=== PATIENT | male | born 1940 | race Caucasian/White ===

== ENCOUNTER 2018-03-23 07:46 | Observation (INO) | payer MEDICARE ==
[2018-03-19 14:16] LABS: BASOPHILS % (AUTO) 1.2 % (0.0-5.0); EOSINOPHILS % (AUTO) 5.1 % (0.0-8.0); HEMATOCRIT 44.9 % (42-54); LYMPHOCYTES % (AUTO) 20.3 % (21.0-51.0); MEAN CORPUSCULAR HEMOGLOBIN 32.6 pg (27.0-33.0); MEAN CORPUSCULAR HGB CONC 34.3 g/dL (32.0-36.0); MEAN CORPUSCULAR VOLUME 95.2 fL (79-99); MONOCYTES % (AUTO) 5.7 % (3.0-13.0); NEUTROPHILS % (AUTO) 67.7 % (40.0-77.0); NUCLEATED RED BLOOD CELLS 0.1 % (0.0-0.19); PLATELET COUNT (AUTO) 313 K/uL (130-400); RED BLOOD CELL COUNT(AUTO) 4.72 MIL/uL (4.50-6.20); RED CELL DISTRIBUTION WIDTH 13.3 % (11.0-15.5); WHITE BLOOD COUNT (AUTO) 12.3 K/uL (4.8-10.8)
[2018-03-19 14:18] LABS: APPEARANCE,URINE Clear (CLEAR); BILIRUBIN,URINE Negative (NEGATIVE); COLOR,URINE Yellow (YELLOW); GLUCOSE, URINE (UA) Negative (NEGATIVE); KETONES,URINE Negative (NEGATIVE); LEUKOCYTE ESTERASE ,URINE Negative (NEGATIVE); NITRATE,URINE Negative (NEGATIVE); OCCULT BLOOD,URINE Negative (NEGATIVE); PROTEIN,URINE Negative (NEGATIVE); UROBILINOGEN,URINE 0.2 mg/dL (0.2-1.0)
[2018-03-19 14:24] LABS: CREATININE 0.9 mg/dL (0.5-1.5); POTASSIUM 4.6 mmol/L (3.5-5.1)
[2018-03-19 14:26] VITALS: BP 145/55
[2018-03-19 14:28] LABS: PARTIAL THROMBOPLASTIN TIME 27.8 SEC (26.3-35.5)
[2018-03-19 14:44] LABS: INR 0.97 (0.85-1.15); PROTHROMBIN TIME 10.2 SEC (9.6-11.6)
[2018-03-23] VITALS (12 sets, daily range): BP systolic 131–158; BP diastolic 51–67
[~2018-03-23] VITALS: Ht 175.3 cm; Wt 84.5 kg
[~2018-03-23 07:46] MED LIST: AMLO5TAB2 PO; ASPI-1181 PO; CLOP75TA14 PO; LISI10TA7 PO; MAGN400T40 PO; METF500T6 PO; MULT-209 PO; MVIT PO; NITR0.4T50 SL; SERT50TA PO
[2018-03-23] MEDS ORDERED: SODIUM BICARB 50MEQ 50ML VIAL ONE (08:54)
[2018-03-23] MEDS ORDERED: ISOVUE-370 50ML VIAL IV ONE (08:55)
[2018-03-23] MEDS ORDERED: LIDOCAINE HCL-MPF 2% 5ML VIAL ONE (08:55)
[2018-03-23] MEDS ORDERED: NITROGLYCERIN 5 MG/ML 10 ML VIAL IV ONE (08:55)
[2018-03-23] MEDS ORDERED: IOPAMIDOL-370 100 ML VIAL IV ONE (08:55)
[2018-03-23] MEDS ORDERED: HEPARIN SODIUM 1000UNIT/ML 10ML VIAL ONE (08:55)
[2018-03-23] MEDS ORDERED: SODIUM CHLORIDE 0.9% 1000ML 1,000 ML IV ONE (09:09)
[2018-03-23] MEDS ORDERED: IOPAMIDOL-370 75 ML VIAL IV ONE (10:09)
[2018-03-23] MEDS ORDERED: ASPIRIN 81MG TAB.CHEW ONE (10:43)
[2018-03-23] MEDS ORDERED: CLOPIDOGREL BISULFATE 75 MG TAB ONE (10:43)
[2018-03-23] MEDS: SODIUM CHLORIDE 0.9% 1000ML 1,000 ML IV SCH ×2 (10:49→21:35)
[2018-03-23] MEDS ORDERED: ROSU10TA PO (10:56)
[2018-03-23] MEDS ORDERED: ONDANSETRON HCL 4 MG/2 ML VIAL IVP SCH (11:00)
[2018-03-23] MEDS ORDERED: ONDANSETRON HCL MDV 20ML 2 MG/ML VIAL IVP PRN (11:00)
[2018-03-23] MEDS ORDERED: ONDANSETRON HCL 4 MG/2 ML VIAL IVP PRN (11:00)
[2018-03-23] MEDS ORDERED: MORPHINE SULFATE 5 MG/ML VIAL IVP SCH (11:00)
[2018-03-23] MEDS ORDERED: ACETAMINOPHEN-CODEINE 300/30MG TAB PO PRN (11:00)
[2018-03-23] MEDS ORDERED: GLUCAGON 1MG KIT 1 MG ML IM PRN (11:00)
[2018-03-23] MEDS ORDERED: NITROGLYCERIN 0.4 MG SL TAB SL PRN (11:00)
[2018-03-23] MEDS ORDERED: DEXTROSE 50%-WATER 50 ML DISP.SYRIN IV PRN (11:00)
[2018-03-23] MEDS: INSULIN HUMULIN R 100 UNIT/ML 3ML SQ SCH ×3 (11:30→21:00)
[2018-03-23 13:03] LABS: INR 0.98 (0.85-1.15); PARTIAL THROMBOPLASTIN TIME 43.6 SEC (26.3-35.5); PROTHROMBIN TIME 10.3 SEC (9.6-11.6)
[2018-03-23] MEDS ORDERED: ATROPINE SULFATE 0.1 MG/ML 10 ML SYG IVP ONE (14:15)
[2018-03-23] MEDS ORDERED: LISINOPRIL 10 MG TABLET PO SCH (21:00)
[2018-03-23] MEDS ORDERED: ATORVASTATIN CALCIUM 20 MG TABLET PO SCH (21:00)
[2018-03-23] MEDS ORDERED: SERTRALINE HCL 50 MG TABLET PO SCH (21:00)
[2018-03-23] MEDS ORDERED: AMLODIPINE BESYLATE 5 MG TAB PO SCH (21:00)
[2018-03-23] MEDS: MAGNESIUM OXIDE 400 MG TABLET PO SCH (21:12)
[2018-03-24 03:51] VITALS: BP 130/54
[2018-03-24 05:12] LABS: HEMATOCRIT 40.7 % (42-54); MEAN CORPUSCULAR HEMOGLOBIN 32.8 pg (27.0-33.0); MEAN CORPUSCULAR HGB CONC 34.7 g/dL (32.0-36.0); MEAN CORPUSCULAR VOLUME 94.5 fL (79-99); PLATELET COUNT (AUTO) 275 K/uL (130-400); RED BLOOD CELL COUNT(AUTO) 4.31 MIL/uL (4.50-6.20); RED CELL DISTRIBUTION WIDTH 13.5 % (11.0-15.5); WHITE BLOOD COUNT (AUTO) 11.6 K/uL (4.8-10.8)
[2018-03-24 05:25] LABS: CREATININE 0.8 mg/dL (0.5-1.5); POTASSIUM 4.2 mmol/L (3.5-5.1)
[2018-03-24] MEDS: INSULIN HUMULIN R 100 UNIT/ML 3ML SQ SCH ×2 (05:49→11:30)
[2018-03-24 07:44] VITALS: BP 127/64
[2018-03-24] MEDS ORDERED: CLOPIDOGREL BISULFATE 75 MG TAB PO SCH (09:00)
[2018-03-24] MEDS ORDERED: ASPIRIN 81 MG EC TAB PO SCH (09:00)
[2018-03-24] MEDS ORDERED: MULTIVITAMIN TABLET PO SCH (09:00)
[2018-03-24] MEDS: MAGNESIUM OXIDE 400 MG TABLET PO SCH (10:10)
== END 2018-03-24 12:35 | disposition home or self-care (01) ==
LOC: DAH 07:46 → 2AH 07:47 → DAH 07:47
PROVIDERS: ADMIT Internal Medicine; ATTEND Internal Medicine
DX: I25.119 Atherosclerotic heart disease of native coronary artery with unspecified angina pectoris (principal); M54.17 Radiculopathy, lumbosacral region; F17.210 Nicotine dependence, cigarettes, uncomplicated; J44.9 Chronic obstructive pulmonary disease, unspecified; E11.51 Type 2 diabetes mellitus with diabetic peripheral angiopathy without gangrene; I10 Essential (primary) hypertension; E78.5 Hyperlipidemia, unspecified; Z79.01 Long term (current) use of anticoagulants; Z79.82 Long term (current) use of aspirin; Z95.5 Presence of coronary angioplasty implant and graft
CPT/HCPCS: 36415 ×3; 71045; 80048 ×2; 80061; 81003; 82948 ×5; 85025; 85027; 85347 ×2; 85610 ×2; 85730 ×2; 93005 ×3; 93458; A4606; C1725; C1769 ×3; C1874; C1887 ×2; C1894 ×3; C9600; G0378 ×29; J0461; J1644; J3490 ×3; J7030 ×2; Q9967 ×3

== ENCOUNTER 2018-09-03 09:53 | Observation (INO) | payer MEDICARE ==
[2018-09-02 12:06] VITALS: BP 111/53
[2018-09-02 12:20] LABS: BASOPHILS % (AUTO) 0.8 % (0.0-5.0); HEMATOCRIT 44.3 % (42-54); MEAN CORPUSCULAR HEMOGLOBIN 31.8 pg (27.0-33.0); MEAN CORPUSCULAR HGB CONC 33.5 g/dL (32.0-36.0); NEUTROPHILS % (AUTO) 70.2 % (40.0-77.0); PLATELET COUNT (AUTO) 224 K/uL (130-400); RED BLOOD CELL COUNT(AUTO) 4.67 MIL/uL (4.50-6.20); RED CELL DISTRIBUTION WIDTH 13.5 % (11.0-15.5); WHITE BLOOD COUNT (AUTO) 12.2 K/uL (4.8-10.8)
[2018-09-02 12:33] LABS: INR 0.98 (0.85-1.15); PROTHROMBIN TIME 10.3 SEC (9.6-11.6)
[2018-09-02 12:36] LABS: CREATININE 1.1 mg/dL (0.5-1.5); POTASSIUM 4.8 mmol/L (3.5-5.1)
[~2018-09-03] VITALS: Ht 175.3 cm; Wt 90.7 kg
[2018-09-03] VITALS (9 sets, daily range): BP systolic 105–147; BP diastolic 46–71
[~2018-09-03 09:53] MED LIST changes: -AMLO5TAB2 PO; +AMLO5TAB7 PO; +METF-444 PO; -METF500T6 PO; +ROSU10TA PO
[2018-09-03] MEDS ORDERED: SODIUM CHLORIDE 0.9% 1000ML 1,000 ML IV ONE (11:17)
[2018-09-03 11:32] LABS: EOSINOPHILS % (AUTO) 5.1 % (0.0-8.0); HEMATOCRIT 43.6 % (42-54); LYMPHOCYTES % (AUTO) 20.3 % (21.0-51.0); MEAN CORPUSCULAR HEMOGLOBIN 32.5 pg (27.0-33.0); MEAN CORPUSCULAR HGB CONC 34.5 g/dL (32.0-36.0); MEAN CORPUSCULAR VOLUME 94.2 fL (79-99); MONOCYTES % (AUTO) 5.8 % (3.0-13.0); NEUTROPHILS % (AUTO) 67.8 % (40.0-77.0); PLATELET COUNT (AUTO) 233 K/uL (130-400); RED BLOOD CELL COUNT(AUTO) 4.63 MIL/uL (4.50-6.20); RED CELL DISTRIBUTION WIDTH 13.2 % (11.0-15.5); WHITE BLOOD COUNT (AUTO) 10.1 K/uL (4.8-10.8)
[2018-09-03] MEDS ORDERED: UMEC1DIS IH (11:59)
[2018-09-03] MEDS ORDERED: BUDE0.5A3 IH (11:59)
[2018-09-03] MEDS ORDERED: AZIT500T4 PO (12:02)
[2018-09-03] MEDS ORDERED: [UNRECOGNIZED DRUG - OTHER] IH (12:02)
[2018-09-03] MEDS ORDERED: METF500T PO (12:07)
[2018-09-03] MEDS ORDERED: MOTILIUM PO (12:09)
[2018-09-03] MEDS ORDERED: MIDAZOLAM HCL 1 MG/ML 2ML VIAL ONE ×2 (13:26→14:20)
[2018-09-03] MEDS ORDERED: BUPIVACAINE/PF 0.25% 50ML VIAL IJ ONE (13:26)
[2018-09-03] MEDS ORDERED: IOHEXOL-350 50ML VIAL IV ONE (13:26)
[2018-09-03] MEDS ORDERED: LIDOCAINE HCL 1% MDV 50ML VIAL ONE (13:27)
[2018-09-03] MEDS ORDERED: MEPERIDINE-PF 25 MG/ML SYG ONE ×2 (13:27→14:20)
[2018-09-03] MEDS ORDERED: CEFAZOLIN SODIUM 1 GM VIAL ONE (13:28)
[2018-09-03] MEDS ORDERED: OCTYL 2-CYANOACRYLATE 1 EACH TP ONE (14:53)
[2018-09-03] MEDS ORDERED: ACETAMINOPHEN 325 MG TAB PO PRN ×2 (15:15)
[2018-09-03] MEDS ORDERED: ACETAMINOPHEN-CODEINE 300/30MG TAB PO PRN ×2 (15:15)
[2018-09-03] MEDS ORDERED: TEMAZEPAM 30 MG CAP PO PRN (15:15)
[2018-09-03] MEDS ORDERED: ONDANSETRON HCL 4 MG/2 ML VIAL IV PRN (15:15)
[2018-09-03] MEDS: INSULIN HUMULIN R 100 UNIT/ML 3ML SQ SCH ×2 (16:30→22:01)
[2018-09-03] MEDS ORDERED: NITROGLYCERIN 0.4 MG SL TAB SL PRN (20:30)
[2018-09-03] MEDS ORDERED: CLOPIDOGREL BISULFATE 75 MG TAB PO SCH (21:00)
[2018-09-03] MEDS ORDERED: AZITHROMYCIN 250 MG TABLET PO SCH (21:00)
[2018-09-03] MEDS ORDERED: **HM**Umeclidinium Brm/Vilanterol Tr (Anoro Ellipta 62.5-25 Mcg IH SCH (21:00)
[2018-09-03] MEDS ORDERED: LISINOPRIL 10 MG TABLET PO SCH (21:00)
[2018-09-03] MEDS ORDERED: ASPIRIN 81 MG EC TAB PO SCH (21:00)
[2018-09-03] MEDS ORDERED: AMLODIPINE BESYLATE 5 MG TAB PO SCH (21:00)
[2018-09-03] MEDS ORDERED: ATORVASTATIN CALCIUM 20 MG TABLET PO SCH (21:00)
[2018-09-03] MEDS ORDERED: SERTRALINE HCL 50 MG TABLET PO SCH (21:00)
[2018-09-03] MEDS: METFORMIN HCL 500 MG TABLET PO SCH (21:37)
[2018-09-03] MEDS: CEFAZOLIN SODIUM 1 GM VIAL IVP SCH (22:04)
[2018-09-03] MEDS: MAGNESIUM OXIDE 400 MG TABLET PO SCH (22:05)
[2018-09-04 03:42] VITALS: BP 121/68
[2018-09-04 04:07] LABS: HEMATOCRIT 39.5 % (42-54); MEAN CORPUSCULAR HEMOGLOBIN 32.5 pg (27.0-33.0); MEAN CORPUSCULAR HGB CONC 34.5 g/dL (32.0-36.0); MEAN CORPUSCULAR VOLUME 94.2 fL (79-99); PLATELET COUNT (AUTO) 201 K/uL (130-400); RED BLOOD CELL COUNT(AUTO) 4.19 MIL/uL (4.50-6.20); RED CELL DISTRIBUTION WIDTH 13.4 % (11.0-15.5)
[2018-09-04 04:19] LABS: ALBUMIN 3.5 g/dL (3.5-5.0); BILIRUBIN,TOTAL 0.3 mg/dL (0.2-1.0); POTASSIUM 4.3 mmol/L (3.5-5.1); TOTAL PROTEIN, SERUM 6.5 g/dL (6.0-8.3)
[2018-09-04] MEDS: INSULIN HUMULIN R 100 UNIT/ML 3ML SQ SCH (05:47)
[2018-09-04] MEDS ORDERED: BUDESONIDE 0.5 MG/2 ML INH IH SCH (06:00)
[2018-09-04] MEDS: CEFAZOLIN SODIUM 1 GM VIAL IVP SCH (06:41)
[2018-09-04 07:23] VITALS: BP 134/71
[2018-09-04] MEDS ORDERED: MULTIVITAMIN W MINERALS PO SCH (09:00)
[2018-09-04] MEDS ORDERED: LUTEIN PO SCH (09:00)
[2018-09-04] MEDS ORDERED: MULTIVITAMIN TABLET PO SCH (09:00)
[2018-09-04] MEDS: METFORMIN HCL 500 MG TABLET PO SCH (10:06)
[2018-09-04] MEDS: MAGNESIUM OXIDE 400 MG TABLET PO SCH (10:06)
[2018-09-04 11:37] VITALS: BP 99/58
== END 2018-09-04 16:30 | disposition home or self-care (01) ==
LOC: DAH 09:53 → DAHIP 09:54 → 2AH 16:04
PROVIDERS: ADMIT Internal Medicine Critical Care Medicine; ATTEND Internal Medicine Critical Care Medicine
DX: I49.5 Sick sinus syndrome (principal); I25.10 Atherosclerotic heart disease of native coronary artery without angina pectoris; I10 Essential (primary) hypertension; E11.9 Type 2 diabetes mellitus without complications; E78.5 Hyperlipidemia, unspecified; F15.90 Other stimulant use, unspecified, uncomplicated; I73.9 Peripheral vascular disease, unspecified; J44.9 Chronic obstructive pulmonary disease, unspecified; Z95.0 Presence of cardiac pacemaker; Z79.01 Long term (current) use of anticoagulants; Z79.2 Long term (current) use of antibiotics; Z79.82 Long term (current) use of aspirin; Z79.899 Other long term (current) drug therapy; Z79.84 Long term (current) use of oral hypoglycemic drugs; Z72.89 Other problems related to lifestyle; Z95.5 Presence of coronary angioplasty implant and graft; Z83.3 Family history of diabetes mellitus; Z82.49 Family history of ischemic heart disease and other diseases of the circulatory system
CPT/HCPCS: 33208; 36415 ×3; 71046 ×2; 80048; 80053; 82948 ×7; 85025 ×2; 85027; 85610; 85730; 93005; 94640; 94664; 96372; 96374; 96376; A4606; C1785; C1894; C1898 ×2; G0378 ×31; J0690 ×3; J1815; J2175 ×2; J2250 ×2; J3490 ×2; J7030; Q9967; 99156; 99157

== ENCOUNTER 2020-04-18 05:30 | Day surgery (SDC) | payer MEDICARE ==
[~2020-04-18] VITALS: Ht 175.3 cm; Wt 100.2 kg
[2020-04-18] VITALS (9 sets, daily range): BP systolic 112–170; BP diastolic 64–85
[~2020-04-18 05:30] MED LIST changes: -AMLO5TAB7 PO; +ENAL10TA PO; -LISI10TA7 PO; -MAGN400T40 PO; -METF-444 PO; +METF500T PO; +METO-391 PO; -MULT-209 PO; -MVIT PO; -NITR0.4T50 SL; -ROSU10TA PO
[2020-04-18 06:10] LABS: APPEARANCE,URINE Clear (CLEAR); BILIRUBIN,URINE Negative (NEGATIVE); COLOR,URINE Yellow (YELLOW); GLUCOSE, URINE (UA) Negative (NEGATIVE); KETONES,URINE Negative (NEGATIVE); LEUKOCYTE ESTERASE ,URINE Negative (NEGATIVE); NITRATE,URINE Negative (NEGATIVE); OCCULT BLOOD,URINE Negative (NEGATIVE); PH,URINE 6.5 (5.0-8.0); PROTEIN,URINE Negative (NEGATIVE); UROBILINOGEN,URINE 0.2 mg/dL (0.2-1.0)
[2020-04-18 06:10] LABS: EOSINOPHILS % (AUTO) 5.1 % (0.0-8.0); HEMATOCRIT 42.3 % (42-54); LYMPHOCYTES % (AUTO) 30.3 % (21.0-51.0); MEAN CORPUSCULAR HEMOGLOBIN 32.1 pg (27.0-33.0); MEAN CORPUSCULAR VOLUME 94.4 fL (79-99); MONOCYTES % (AUTO) 6.5 % (3.0-13.0); NEUTROPHILS % (AUTO) 56.6 % (40.0-77.0); PLATELET COUNT (AUTO) 257 K/uL (130-400); RED BLOOD CELL COUNT(AUTO) 4.48 MIL/uL (4.50-6.20); RED CELL DISTRIBUTION WIDTH 12.5 % (11.0-15.5); WHITE BLOOD COUNT (AUTO) 9.6 K/uL (4.8-10.8)
[2020-04-18 06:29] LABS: CREATININE 1.2 mg/dL (0.5-1.5); POTASSIUM 5.2 mmol/L (3.5-5.1)
[2020-04-18] MEDS ORDERED: METF-444 PO (06:38)
[2020-04-18] MEDS ORDERED: METO50TA18 PO (06:38)
[2020-04-18] MEDS ORDERED: METOPROLOL TARTRATE 50 MG TAB PO SCH (06:45)
[2020-04-18] MEDS ORDERED: SODIUM CHLORIDE 0.9% 1000ML 1,000 ML IV ONE (06:47)
[2020-04-18] MEDS ORDERED: IOHEXOL 350 MG/ML 100ML INFUS..BTL IV ONE (07:17)
[2020-04-18] MEDS ORDERED: HEPARIN SODIUM 1000UNIT/ML 10ML VIAL ONE (07:17)
[2020-04-18] MEDS ORDERED: NITROGLYCERIN 2 MG/VIAL VIAL IV ONE (07:17)
[2020-04-18] MEDS ORDERED: SODIUM BICARB 50MEQ 50ML VIAL ONE (07:17)
[2020-04-18] MEDS ORDERED: IOHEXOL-350 50ML VIAL IV ONE (07:17)
[2020-04-18] MEDS ORDERED: MIDAZOLAM HCL 1 MG/ML 2ML VIAL ONE (07:18)
[2020-04-18] MEDS ORDERED: LIDOCAINE HCL 2% 20ML ONE (07:18)
[2020-04-18] MEDS ORDERED: MEPERIDINE-PF 25 MG/ML SYG ONE (07:18)
[2020-04-18 07:23] LABS: INR 0.92 (0.85-1.15); PARTIAL THROMBOPLASTIN TIME 27.4 SEC (26.3-35.5)
[2020-04-18] MEDS ORDERED: SODIUM CHLORIDE 0.9% 1000ML 1,000 ML IV SCH (08:42)
[2020-04-18] MEDS ORDERED: DEXTROSE 50%-WATER 50 ML DISP.SYRIN IV PRN (08:45)
[2020-04-18] MEDS ORDERED: GLUCAGON 1MG KIT 1 MG ML IM PRN (08:45)
--- NOTE | 2020-04-18 11:15 | NUR ---
REPORT RECEIVED REPORT FROM INDIO PARRY. PT LYING IN BED. INSTRUCTED IMPORTANCE OF NOT MOVING RIGHT LEG OR LIFTING HEAD UP OFF OF BED. VERBALIZED UNDERSTANDING. SITE TO RIGHT GROIN SOFT TO TOUCH. NO BLEEDING, OOZING NOTED.
[2020-04-18] MEDS ORDERED: INSULIN HUMULIN R 100 UNIT/ML 3ML SQ SCH (11:30)
--- NOTE | 2020-04-18 12:15 | NUR ---
INSTRUCTIONS INSTRUCTIONS GIVEN TO OVER PHONE.INSTRUCTED ON IMPORTANCE OF MONITORING RIGHT SITE FOR BLEEDING, OOZING. INSTRUCTED ON NO MEDICATION CHANGES. BOTH AND PT VERBALIZED UNDERSTANDING.
--- NOTE | 2020-04-18 13:10 | NUR ---
DISCHGARGE PT DISCHARGED VIA WHEELCHAIR. NO BLEEDING, OOZING NOTED TO SITE. SOFT TO TOUCH. NO OTHER QUESTIONS.
== END 2020-04-18 13:15 | disposition home or self-care (01) ==
LOC: CLH 05:30
PROVIDERS: ATTEND Internal Medicine Cardiovascular Disease
DX: I25.10 Atherosclerotic heart disease of native coronary artery without angina pectoris (principal); I25.5 Ischemic cardiomyopathy; I25.82 Chronic total occlusion of coronary artery; Z95.5 Presence of coronary angioplasty implant and graft; I10 Essential (primary) hypertension; J44.9 Chronic obstructive pulmonary disease, unspecified; E11.9 Type 2 diabetes mellitus without complications; Z95.0 Presence of cardiac pacemaker; Z79.01 Long term (current) use of anticoagulants; E78.5 Hyperlipidemia, unspecified; Z79.84 Long term (current) use of oral hypoglycemic drugs; Z79.899 Other long term (current) drug therapy; M54.12 Radiculopathy, cervical region
CPT/HCPCS: 36415; 71045; 80048; 81003; 82948 ×2; 85025; 85610; 85730; 93005; 93458; A4215; A4216; A4221; A4222; A4223 ×3; A4606; A4663; C1760; C1894; J1644; J2175; J2250; J3490 ×3; J7030; Q9965; Q9967 ×2; 99156; 99157

== ENCOUNTER 2020-07-26 05:57 | Day surgery (SDC) | payer MEDICARE ==
[2020-07-24 11:53] LABS: BASOPHILS % (AUTO) 0.9 % (0.0-5.0); EOSINOPHILS % (AUTO) 3.2 % (0.0-8.0); HEMATOCRIT 39.9 % (42-54); LYMPHOCYTES % (AUTO) 24.8 % (21.0-51.0); MEAN CORPUSCULAR HEMOGLOBIN 31.8 pg (27.0-33.0); MEAN CORPUSCULAR HGB CONC 34.6 g/dL (32.0-36.0); MEAN CORPUSCULAR VOLUME 91.9 fL (79-99); MONOCYTES % (AUTO) 7.2 % (3.0-13.0); PLATELET COUNT (AUTO) 316 K/uL (130-400); RED BLOOD CELL COUNT(AUTO) 4.34 MIL/uL (4.50-6.20); RED CELL DISTRIBUTION WIDTH 12.3 % (11.0-15.5); WHITE BLOOD COUNT (AUTO) 11.7 K/uL (4.8-10.8)
[2020-07-24 12:13] LABS: INR 0.92 (0.85-1.15); PARTIAL THROMBOPLASTIN TIME 28.2 SEC (26.3-35.5)
--- NOTE | 2020-07-25 12:20 | NUR ---
REPORT CALLED [facility] FOR DR PEDERSON AND REPORTED CBC. RECEIVED NEW ORDERS TO REPEAT CBC IN AM
[2020-07-25 13:35] VITALS: BP 115/64
[~2020-07-26] VITALS: Ht 175.3 cm; Wt 98.6 kg
[2020-07-26] VITALS (11 sets, daily range): BP systolic 103–138; BP diastolic 55–70
[~2020-07-26 05:57] MED LIST changes: -ASPI-1181 PO; +ASPI-1443 PO; +BETA1TAB15 PO; -ENAL10TA PO; +ENAL10TA18 PO; +MAGN400C PO; +METF-444 PO; -METF500T PO; -METO-391 PO; +METO50TA18 PO; +MULT-1367 PO; +NITR0.4T SL; +SODIUM CHLORIDE 0.9% 500ML 500 ML IV SCH; +ipratropium bromide NEB
[2020-07-26] MEDS ORDERED: CEFAZOLIN SODIUM 1 GM VIAL IVP SCH (06:00)
[2020-07-26 06:20] LABS: BASOPHILS % (AUTO) 0.9 % (0.0-5.0); EOSINOPHILS % (AUTO) 4.4 % (0.0-8.0); LYMPHOCYTES % (AUTO) 24.7 % (21.0-51.0); MEAN CORPUSCULAR HEMOGLOBIN 31.4 pg (27.0-33.0); MEAN CORPUSCULAR HGB CONC 33.8 g/dL (32.0-36.0); MEAN CORPUSCULAR VOLUME 92.9 fL (79-99); MONOCYTES % (AUTO) 6.7 % (3.0-13.0); NEUTROPHILS % (AUTO) 62.6 % (40.0-77.0); PLATELET COUNT (AUTO) 274 K/uL (130-400); RED CELL DISTRIBUTION WIDTH 12.8 % (11.0-15.5); WHITE BLOOD COUNT (AUTO) 10.3 K/uL (4.8-10.8)
[2020-07-26] MEDS ORDERED: SODIUM CHLORIDE 0.9% 1000ML 1,000 ML IV ONE (06:59)
[2020-07-26] MEDS ORDERED: IOHEXOL-350 50ML VIAL IV ONE ×2 (07:20→07:53)
[2020-07-26] MEDS ORDERED: MEPERIDINE-PF 25 MG/ML SYG ONE ×3 (07:20→09:12)
[2020-07-26] MEDS ORDERED: BUPIVACAINE/PF 0.25% 30ML VIAL IJ ONE (07:20)
[2020-07-26] MEDS ORDERED: MIDAZOLAM HCL 1 MG/ML 2ML VIAL ONE ×3 (07:20→09:12)
[2020-07-26] MEDS ORDERED: CEFAZOLIN SODIUM 1 GM VIAL ONE (07:20)
[2020-07-26] MEDS ORDERED: LIDOCAINE HCL 1% MDV 50ML VIAL ONE (07:21)
[2020-07-26] MEDS ORDERED: ACETAMINOPHEN-CODEINE 300/30MG TAB PO PRN (10:00)
[2020-07-26] MEDS ORDERED: TRAM50TA4 PO (10:07)
--- NOTE | 2020-07-26 15:00 | NUR ---
GAVE REPORT TO RAZA ARANA AT BEDSIDE , NO CONCERNS VOICED.
--- NOTE | 2020-07-26 16:00 | NUR ---
PATIENT LYING IN BED, VITAL SIGNS STABLE. DENIES ANY PAIN AT THIS TIME. PRESSURE DRESSING TO LEFT UPPER CHEST WALL DRY/INTACT WITH SLING IN PLACE. AAOX3, BED IN LOWEST POSITION, SIDERAILS UP X3.
--- NOTE | 2020-07-26 16:30 | NUR ---
XRAY RESULTS PROVIDED TO DR PEDERSON AND RECEIVED THE OK TO SEND PATIENT HOME
--- NOTE | 2020-07-26 17:00 | NUR ---
PRESSURE DRESSING REMOVED FROM LEFT UPPER CHEST WALL. OPSITE IN PLACE WITH 4X4 GAUZE, DRY/INTACT. INSTRUCTED PATIENT TO CHANGE DRESSING ONCE DAY FOR 5 DAYS, DRY DRESSING CHANGES. PATIENT VOICED UNDERSTANDING. PROVIDED PATIENT WITH GAUZE AND OPSITES. FOLLOW UP APPOINTMENT PROVIDED AND INSTRUCTIONS PROVIDED TO SPOUSE AND PATIENT. ALL QUESTIONS/CONCERNS ADDRESSED.
--- NOTE | 2020-07-26 17:40 | NUR ---
PATIENT DISCHARGED FROM FACILITY VIA WHEELCHAIR BY NURSE. PATIENT ASSISTED INTO PRIVATE VEHICLE DRIVEN BY SPOUSE.
== END 2020-07-26 17:40 | disposition home or self-care (01) ==
LOC: DAH 05:57
PROVIDERS: ATTEND Internal Medicine Cardiovascular Disease
DX: Z45.02 Encounter for adjustment and management of automatic implantable cardiac defibrillator (principal); I49.5 Sick sinus syndrome; I44.2 Atrioventricular block, complete; I11.0 Hypertensive heart disease with heart failure; I25.2 Old myocardial infarction; I50.9 Heart failure, unspecified; I25.10 Atherosclerotic heart disease of native coronary artery without angina pectoris; E78.5 Hyperlipidemia, unspecified; E11.9 Type 2 diabetes mellitus without complications; J44.9 Chronic obstructive pulmonary disease, unspecified; Z79.01 Long term (current) use of anticoagulants; Z79.899 Other long term (current) drug therapy; Z95.5 Presence of coronary angioplasty implant and graft; I25.5 Ischemic cardiomyopathy; R06.02 Shortness of breath
CPT/HCPCS: 33225; 33233; 33249; 36415 ×2; 71045; 80048; 82948 ×3; 85025 ×2; 85610; 85730; 93005; A4215; A4216; A4221; A4222; A4223 ×3; A4606; A4663; C1769 ×2; C1882; C1895; C1900; J0690; J2175 ×3; J2250 ×3; J3490 ×2; J7030; Q9967 ×2; 99156; 99157